=== PATIENT | female | born 1980 | race Caucasian/White ===

== ENCOUNTER 2021-01-27 19:47 | Inpatient (IN) | payer OTHER ==
[~2021-01-27] VITALS: Ht 162.6 cm; Wt 73.0 kg
[2021-01-28] MEDS ORDERED: AZITHROMYCIN500 MG (08:12)
[2021-01-28] MEDS ORDERED: PREDNISONE10 M2 (08:12)
[2021-01-28] MEDS ORDERED: SYMBICORT 16010.2 GM (08:12)
== END 2021-02-02 12:16 | disposition home or self-care (01) | DRG 805 ==
LOC: LDR 19:47 → OB/GYN 01-31 14:48
PROVIDERS: ADMIT Obstetrics & Gynecology; ATTEND Obstetrics & Gynecology
PROC: 3E0F7SF Introduction of Other Gas into Respiratory Tract, Via Natural or Artificial Opening (ICD-10-PCS; 2021-01-28)
PROC: 4A1HXFZ Monitoring of Products of Conception, Cardiac Rhythm, External Approach (ICD-10-PCS; 2021-01-28)
PROC: 10E0XZZ Delivery of Products of Conception, External Approach (ICD-10-PCS; principal; 2021-01-31)
PROC: 0KQM0ZZ Repair Perineum Muscle, Open Approach (ICD-10-PCS; 2021-01-31)
DX: O98.52 Other viral diseases complicating childbirth (principal); U07.1 COVID-19; J12.82 Pneumonia due to coronavirus disease 2019; O99.52 Diseases of the respiratory system complicating childbirth; J45.901 Unspecified asthma with (acute) exacerbation; Z37.0 Single live birth; O70.1 Second degree perineal laceration during delivery; Z3A.38 38 weeks gestation of pregnancy